=== PATIENT | male | born 1980 | race Caucasian/White ===

== ENCOUNTER 2018-05-30 16:19 | Outpatient (REF) | payer BC, SELFPAY ==
[2018-05-30 21:33] LABS: ALT 128 U/L (12-78); AST 47 U/L (15-37); Albumin 4.1 g/dL (3.4-5.0); Alkaline Phosphatase 84 U/L (46-116); Bilirubin, Direct 0.12 mg/dL (0.00-0.20); Bilirubin, Total 0.4 mg/dL (0.2-1.0); Total Protein 7.5 g/dL (6.4-8.2)
== END 2018-05-30 16:39 ==
LOC: NCHCN 16:19
PROVIDERS: PCP Internal Medicine; Visit Provider Registered Nurse
DX: R94.5 Abnormal results of liver function studies (principal)
CPT/HCPCS: 80076

== ENCOUNTER 2018-07-19 16:43 | Outpatient (REF) | payer BC, SELFPAY ==
[2018-07-19 22:12] LABS: ALT 39 U/L (12-78); AST 15 U/L (15-37); Albumin 4.2 g/dL (3.4-5.0); Alkaline Phosphatase 79 U/L (46-116); Bilirubin, Direct 0.09 mg/dL (0.00-0.20); Bilirubin, Total 0.3 mg/dL (0.2-1.0)
== END 2018-07-19 17:03 ==
LOC: NCHCN 16:43
PROVIDERS: PCP Internal Medicine; Visit Provider Registered Nurse
DX: R94.5 Abnormal results of liver function studies (principal)
CPT/HCPCS: 80076

== ENCOUNTER 2023-09-28 22:14 | Outpatient (REF) | payer BC, SELFPAY ==
[2023-09-28 22:27] LABS: ALT 92 U/L (16-63); AST 45 U/L (15-37); Albumin 4.4 g/dL (3.4-5.0); Alkaline Phosphatase 66 U/L (46-116); Anion Gap 9.1 mmol/L (3-11); BUN 15 mg/dL (7-18); Bilirubin, Total 0.49 mg/dL (0.2-1.0); CO2 27.9 mmol/L (21.0-32.0); CREATININE 1.1 mg/dL (0.70-1.30); Calcium 9.2 mg/dL (8.5-10.1); Calculated LDL 134 mg/dL (<100); Chloride 102 mmol/L (98-107); Cholesterol 205 mg/dL (<200); Estimated GFR 85.95 (mL/min/1.73m2); Glucose 90 mg/dL (74-106); HDL Cholesterol 51 mg/dL (40-60); Sodium 139 mmol/L (136-145); Triglyceride 103 mg/dL (<150)
[2023-09-29 18:27] LABS: PSA, Screening 1.4 ng/mL (<=2.5)
== END 2023-09-28 22:15 | disposition home or self-care (01) ==
LOC: NCHCN 22:14
PROVIDERS: PCP Internal Medicine; Visit Provider Family Medicine
DX: A63.0 Anogenital (venereal) warts (principal); Z13.220 Encounter for screening for lipoid disorders; Z12.5 Encounter for screening for malignant neoplasm of prostate
CPT/HCPCS: 80053; 80061; 84153